=== PATIENT | female | born 1955 | race Caucasian/White ===

== ENCOUNTER 2016-10-30 19:48 | Emergency (ER) | payer MEDICARE, MEDICAID ==
[2016-10-30 19:57] VITALS: TEMP 98.1; BMI 33.6
[2016-10-30 20:40] LABS: AUTOMATED BASOPHIL 0.8 % (0-2); AUTOMATED EOSINOPHIL 0.5 % (0-5); AUTOMATED LYMPH 24.3 % (17-44); AUTOMATED MONOCYTE 8.2 % (3-10); AUTOMATED NEUTROPHIL 66.2 % (45-76); MPV 9.5 fL (7.4-10.4)
[2016-10-30 20:47] LABS: PARTIAL THROMB. TIME 24.5 SEC (22-35); PT-INR 1.1
--- NOTE | 2016-10-30 20:50 | DIRPT ---
CLINICAL DATA: Acute onset of fever and shortness of breath. Facial swelling and erythema. Initial encounter. EXAM: CHEST 2 VIEW COMPARISON: Chest radiograph performed 11/23/2015 FINDINGS: The lungs are well-aerated. Pulmonary vascularity is at the upper limits of normal. Peribronchial thickening is seen. There is no evidence of focal opacification, pleural effusion or pneumothorax. The heart is normal in size; the mediastinal contour is within normal limits. No acute osseous abnormalities are seen. Clips are noted within the right upper quadrant, reflecting prior cholecystectomy. IMPRESSION: Peribronchial thickening seen. Lungs otherwise clear. Electronically Signed By: Otto Salgado M.D. On: 10/30/2016 20:48
[2016-10-30 20:58] LABS: BLOOD UREA NITROGEN 8 MG/DL (7-17); CALCIUM 9.7 MG/DL (8.4-10.2); CALCULATED OSMOLALITY 268 MOs/Kg (270-290); CHLORIDE 99 mEq/L (98-107); CPK TOTAL WITH POSSIBLE MB 191 IU/L (30-134); GLUCOSE 129 MG/DL (70-99); SODIUM LEVEL 139 mEq/L (137-146); TOTAL PROTEIN 8.2 G/DL (6.3-8.2)
[2016-10-30 21:13] LABS: CPKMB 1.1 ng/mL (0-4.5)
[2016-10-30] MEDS ORDERED: TRIMETHOPRIM-SULFAMETHOXAZOLE TAB PO STA (21:57)
[2016-10-30] MEDS ORDERED: DIAZEPAM 5 MG TAB PO STA (21:57)
--- NOTE | 2016-10-30 21:57 | EDPRACDOC ---
- General Information Chief Complaint: Dyspnea/Resp distress Stated Complaint: TROUBLE BREATHING FACE SWOLLEN TROUBLE SEEING Time Seen by Provider: 10/30/16 19:59 Information Source: Patient Mode Of Arrival: Car Home Medications: Home Medications Nitroglycerin [Nitrostat] 0.4 mg SL [id number] PRN 10/09/12 Aspirin (Enteric Coated) [Halfprin] 81 mg PO DAILY #30 tablet 10/31/15 Alprazolam [Xanax] 1 mg PO BID #60 tablet 01/06/16 Clindamycin HCl [Cleocin HCl] 300 mg PO TID #30 capsule 10/30/16 Clopidogrel Bisulfate [Plavix] 75 mg PO DAILY #30 tab 10/30/16 Clopidogrel Bisulfate [Plavix] 75 mg PO DAILY #30 tablet 10/30/16 Escitalopram Oxalate [Lexapro] 10 mg PO DAILY #30 tab 10/30/16 Escitalopram Oxalate [Lexapro] 10 mg PO DAILY #30 tablet 10/30/16 Gabapentin [Neurontin] 600 mg PO BID #60 tab 10/30/16 Gabapentin [Neurontin] 600 mg PO BID #60 tablet 10/30/16 Hydrocodone Bit/Acetaminophen [Keavy 5-325 Tablet] 1 tab PO BID PRN 10/30/16 Isosorbide Mononitrate [Isosorbide Mononitrate ER] 30 mg PO BID #60 tab.er.24h 10/30/16 Isosorbide Mononitrate [Isosorbide Mononitrate ER] 30 mg PO BID #60 tab.er.24h 10/30/16 Lisinopril [Zestril] 20 mg PO DAILY #30 tab 10/30/16 Lisinopril [Zestril] 20 mg PO DAILY #30 tablet 10/30/16 Metoprolol Tartrate [Lopressor] 25 mg PO BID #60 tab 10/30/16 Metoprolol Tartrate [Lopressor] 25 mg PO BID #60 tablet 10/30/16 Pantoprazole Sodium [Protonix] 40 mg PO DAILY #30 tab 10/30/16 Pantoprazole Sodium [Protonix] 40 mg PO DAILY #30 tab 10/30/16 Potassium Chloride [K-Tab ER] 20 meq PO DAILY #30 tablet.er 10/30/16 Potassium Chloride [K-Tab ER] 20 meq PO DAILY #30 tablet.er 10/30/16 Allergies/Adverse Reactions: Allergies Allergy/AdvReac Type Severity Reaction Status Date / Time venom-honey bee Allergy Severe Hives* Verified 01/06/16 14:59 [bee venom (honey bee)] levofloxacin [From Levaquin] Allergy Unknown Verified 10/30/16 21:21 moxifloxacin [From Avelox] Allergy Unknown Verified 10/30/16 21:21 CREAM CHEESE Allergy Severe Hives* Uncoded 01/06/16 14:59 antibiotic Allergy Unknown Uncoded 10/30/16 21:21 - History of Present Illness HPI: PT PRESENTS WITH INCREASE DYSPNEA AFTER RUNNING OUT OF HER HOME MEDICATIONS. SHE ALSO REPORTS SOME SWELLING TO HER NOSE AND CRUSTING TO INTERIOR LOWER NARES. Shortness of Breath: Mild Relevant History: Reports: COPD Cough: Reports: Non-productive Rhinorrhea: Reports: Clear Associated Signs and symptoms: Reports: Cough. Denies: Fever, Vomiting ED Past Medical History - History Reviewed Yes Nurses notes reviewed and agree except as marked - Patient Medical History Neurological History: Denies: Cerebrovascular Accident, Seizures, Migraine, Dementia Cardiac History: Reports: Coronary Artery Disease (Stents placed), Hypertension , Congestive Heart Failure, Heart Attack, Hypercholesterolemia (no longer medicated) Respiratory History: Reports: Asthma, COPD, Cough, Emphysema GI/ History: Reports: Renal Disease, Urinary Tract Infection, Gastroesophageal Reflux Psychological History: Reports: Anxiety. Denies: Depression, Substance Use Disorder Systemic History: Denies: Cancer, Anemia, Diabetes, Hyperthyroidism, Hypothyroidism Additional Past Medical History: AAA Surgical History: Reports: Cholecystectomy, Hysterectomy, Tonsillectomy/ Adnoidectomy - Family Medical History Reports: Diabetes (mother, maternal grandmother, great uncle), Stroke (maternal grandmother), Cardiac Disorders (mother). Denies: Hypertension, Cancer - Social Medical History Smoking Status: Heavy tobacco smoker (5 or more cigarettes/day or daily pipe/ cigar) Social History: Reports: Benzodiazipine Use. Denies: Substance Use Disorder Lives In: Home EDM Review of Systems - Review of Systems ROS Negative Except as Marked: Yes All systems reviewed and were negative except as marked Constitutional: Fatigue. negative: Fever Nose: Congestion, Other (LOWER NASAL CRUSTING WITH REDNESS TO NOSE.) Respiratory: Shortness of Breath Cardiovascular: negative: Chest Pain Gastrointestinal: negative: Pain, Vomiting - Physical Exam Constitutional: Alert Oriented to: Time, Person, Place Last recorded Vital Signs: Last Vital Signs Temp 98.1 F 10/30/16 19:52 Pulse 94 10/30/16 21:40 Resp 22 10/30/16 21:40 BP 165/80 10/30/16 21:40 Pulse Ox 96 10/30/16 21:40 Oxygen Pulse Oxygen Saturation 96 O2 Device Nasal Cannula Oxygen Flow Rate 2.5 Fraction of Inspired Oxygen ( FIO2) - HEENT Head: negative: Deformity, Laceration Eye Exam: negative: Conjunctival Injection, Pale Conjunctiva Oropharynx: negative: Membranes Dry Nose: Other (CRUSTING TO BILATERAL LOWER NARES WITH ERYTHEMA TO END OF NOSE WITHOUT FLUCTUANCE OR SKIN BREAKDOWN TO THE EXTERIOR.) - Respiratory/Cardiovascular Respiratory: Diminished. negative: Accessory Muscle Use, Tachypnea Cardiovascular: negative: Bradycardia, Tachycardia, Irregular - GI Auscultation: Normal Palpation: Normal Tenderness: Non tender - Integumentary Skin: Warm, Dry. negative: Rash - Neurologic Memory Impaired: Normal Motor Function: Normal Mood Description: Anxious Thought: Coherent Perception: Normal ED SOB MDM - Results Result Diagrams: 10/30/16 20:23 10/30/16 20:23 Results: WBC 8.8 xk/uL (3.8-10.8) 10/30/16 20:23 RBC 4.55 xM/uL (4.20-5.40) 10/30/16 20:23 Hgb 13.3 g/dL (12.0-16.0) 10/30/16 20:23 Hct 40.0 % (36-47) 10/30/16 20:23 MCV 88 fL (81-99) 10/30/16 20:23 MCH 29.2 pg (27-32) 10/30/16 20:23 MCHC 33.2 g/dl (33-36) 10/30/16 20:23 RDW 14.4 % (11.5-14.5) 10/30/16 20:23 Plt Count 335 xk/uL (130-400) 10/30/16 20:23 MPV 9.5 fL (7.4-10.4) 10/30/16 20:23 Neut % (Auto) 66.2 % (45-76) 10/30/16 20:23 Lymph % (Auto) 24.3 % (17-44) 10/30/16 20:23 [place] % (Auto) 8.2 % (3-10) 10/30/16 20:23 Eos % (Auto) 0.5 % (0-5) 10/30/16 20:23 Baso % (Auto) 0.8 % (0-2) 10/30/16 20:23 Absolute Neuts (auto) 5.81 xk/uL (1.7-8.2) 10/30/16 20:23 Absolute Lymphs (auto) 2.11 xk/uL (0.65-4.75) 10/30/16 20:23 PT 10.8 SEC (9.2-11.2) 10/30/16 20:23 INR 1.1 10/30/16 20:23 APTT 24.5 SEC (22-35) 10/30/16 20:23 Sodium 139 mEq/L (137-146) 10/30/16 20:23 Potassium 3.7 mEq/L (3.5-5.1) 10/30/16 20:23 Chloride 99 mEq/L (98-107) 10/30/16 20:23 Carbon Dioxide 29 mMOL/L (22-33) 10/30/16 20:23 Anion Gap 15 mEq/L (8-16) 10/30/16 20:23 BUN 8 MG/DL (7-17) 10/30/16 20:23 Creatinine 0.70 MG/DL (0.52-1.04) 10/30/16 20:23 Estimated GFR (MDRD) > 60 mL/min (>=60) 10/30/16 20:23 Glucose 129 MG/DL (70-99) H 10/30/16 20:23 Calculated Osmolality 268 MOs/Kg (270-290) L 10/30/16 20:23 Calcium 9.7 MG/DL (8.4-10.2) 10/30/16 20:23 Total Bilirubin 0.7 MG/DL (0.2-1.3) 10/30/16 20:23 AST 34 IU/L (14-36) 10/30/16 20:23 ALT 26 IU/L (9-52) 10/30/16 20:23 Alkaline Phosphatase 121 IU/L (55-165) 10/30/16 20:23 Creatine Kinase 191 IU/L (30-134) H 10/30/16 20:23 CK-MB (CK-2) 1.1 ng/mL (0-4.5) 10/30/16 20:23 Troponin I < 0.01 ng/mL (<.04) 10/30/16 20:23 Total Protein 8.2 G/DL (6.3-8.2) 10/30/16 20:23 Albumin 4.4 G/DL (3.5-5.0) 10/30/16 20:23 Lab Results 10/30/16 10/30/16 10/30/16 20:23 20:23 20:23 WBC 8.8 RBC 4.55 Hgb 13.3 Hct 40.0 MCV 88 MCH 29.2 MCHC 33.2 RDW 14.4 Plt Count 335 MPV 9.5 Neut % (Auto) 66.2 Lymph % (Auto) 24.3 [place] % (Auto) 8.2 Eos % (Auto) 0.5 Baso % (Auto) 0.8 Absolute Neuts (auto) 5.81 Absolute Lymphs (auto) 2.11 PT 10.8 INR 1.1 APTT 24.5 Sodium 139 Potassium 3.7 Chloride 99 Carbon Dioxide 29 Anion Gap 15 BUN 8 Creatinine 0.70 Estimated GFR (MDRD) > 60 Glucose 129 H Calculated Osmolality 268 L Calcium 9.7 Total Bilirubin 0.7 AST 34 ALT 26 Alkaline Phosphatase 121 Creatine Kinase 191 H CK-MB (CK-2) 1.1 Troponin I < 0.01 Total Protein 8.2 Albumin 4.4 - EKG EKG #1 EKG Time: 20:05 -: Yes EKG interpreted by me Rate: bpm: 72 Rhythm: NSR Block: None ST: Nonsp Decision Time to Discharge: 21:59 - Departure Yes I personally saw and evaluated the patient. Disposition: Home Condition: Stable Final Diagnosis: Bronchitis Infected nasal abrasion Qualifiers: Encounter type: initial encounter Qualified Code(s): S00.31XA - Abrasion of nose, initial encounter Instructions: Acute Bronchitis (ED) Education/Counseling Given To: Patient Education/Counseling Given Regarding: Diagnosis, Treatment, Prognosis, Follow Up Referrals: None,No Provider [Primary Care Provider] - Call for Appointment Prescriptions: Clindamycin HCl [Cleocin HCl] 300 mg PO TID #30 capsule Clopidogrel Bisulfate [Plavix] 75 mg PO DAILY #30 tablet Clopidogrel Bisulfate [Plavix] 75 mg PO DAILY #30 tab Escitalopram Oxalate [Lexapro] 10 mg PO DAILY #30 tablet Escitalopram Oxalate [Lexapro] 10 mg PO DAILY #30 tab Gabapentin [Neurontin] 600 mg PO BID #60 tablet Gabapentin [Neurontin] 600 mg PO BID #60 tab Isosorbide Mononitrate [Isosorbide Mononitrate ER] 30 mg PO BID #60 tab.er.24h Isosorbide Mononitrate [Isosorbide Mononitrate ER] 30 mg PO BID #60 tab.er.24h Lisinopril [Zestril] 20 mg PO DAILY #30 tablet Lisinopril [Zestril] 20 mg PO DAILY #30 tab Metoprolol Tartrate [Lopressor] 25 mg PO BID #60 tablet Metoprolol Tartrate [Lopressor] 25 mg PO BID #60 tab Pantoprazole Sodium [Protonix] 40 mg PO DAILY #30 tab Pantoprazole Sodium [Protonix] 40 mg PO DAILY #30 tab Potassium Chloride [K-Tab ER] 20 meq PO DAILY #30 tablet.er Potassium Chloride [K-Tab ER] 20 meq PO DAILY #30 tablet.er Additional Instructions: CALL YOUR PCP TO FOLLOW UP FOR PRESCRIPTIONS OF YOUR CONTROLLED MEDICATIONS.
[2016-10-30] MEDS ORDERED: GENTAMICIN 0.3% OPHTH SOLN 5 ML BOTTLE OU ONE (22:00)
[2016-10-30 22:28] VITALS: BP 151/96; PULSE 86
== END 2016-10-30 22:26 | disposition home or self-care (01) ==
LOC: ED 19:48
DX: J20.9 Acute bronchitis, unspecified (principal); S00.31XA Abrasion of nose, initial encounter; X58.XXXA Exposure to other specified factors, initial encounter
CPT/HCPCS: 36415; 71020; 80053; 82550; 82553; 84484; 85025; 85610; 85730; 87040; 93005; 99284; A9270; J3490